=== PATIENT | male | born 1985 | race Caucasian/White ===

== ENCOUNTER 2019-01-21 17:23 | Emergency (ER) | payer MEDICAID ==
[2019-01-21 17:31] VITALS: BP 147/87; PULSE 109; RESP 18; TEMP 98.1; O2SAT 99
--- NOTE | 2019-01-21 19:54 | ED PDOC ---
HPI: Psych/Substance Abuse Time Seen by Provider: 01/21/19 17:40 Chief Complaint (Nursing): Psychiatric Evaluation Chief Complaint (Provider): Psychiatric Evaluation History Per: Patient History/Exam Limitations: no limitations Current Symptoms Are (Timing): Still Present Additional Complaint(s): 33 year old male with history of depression and substance abuse presents to the ED via EMS for a psychiatric evaluation. Patient notes preference of being called Jeanie, as she is transgender. She reports a history of IV drug abuse and alcoholism in the past, and states that while she no longer drinks, she uses methamphetamines daily, but not today. Patient presents to ED seeking help after waking up this morning from a dream that seemed real and feeling like something was taken away from her in her home. Additionally, patient is reporting feeling sad lately because she misses some family members. Otherwise, denies suicidal and homicidal ideation at this time, saying the last time she harmed herself was three days ago the the right forearm. She is requesting to "vent" to someone. PMD: none provided Past Medical History Reviewed: Historical Data, Nursing Documentation, Vital Signs Vital Signs: Last Vital Signs Temp 98.1 F 01/21/19 17:30 Pulse 109 H 01/21/19 17:30 Resp 18 01/21/19 17:30 BP 147/87 01/21/19 17:30 Pulse Ox 99 01/21/19 17:30 - Medical History PMH: Anxiety, Depression, HIV, Schizophrenia Denies: Diabetes, Hepatitis, HTN, Seizures, Sexually Transmitted Disease - Surgical History Other surgeries: breast implants - Family History Family History: States: Unknown Family Hx - Social History Current smoker - smoking cessation education provided: Yes Alcohol: Other (hx of abuse, but reports no longer drinks) Drugs: Methamphetamine (daily), Other (IV drug abuse) - Immunization History Hx Tetanus Toxoid Vaccination: No Hx Influenza Vaccination: No Hx Pneumococcal Vaccination: No - Home Medications Home Medications: Ambulatory Orders Medication Instructions Recorded Lexapro 05/14/15 Unobtainable 09/25/18 Unobtainable 10/14/18 - Allergies Allergies/Adverse Reactions: Allergies Allergy/AdvReac Type Severity Reaction Status Date / Time No Known Allergies Allergy Unverified 10/15/18 07:48 Review of Systems ROS Statement: Except As Marked, All Systems Reviewed And Found Negative Skin: Positive for: Other (cuts on right forearm) Psych: Positive for: Depression, Other (drug abuse). Negative for: Suicidal ideation (or homicidal ideation) Physical Exam - Reviewed Nursing Documentation Reviewed: Yes Vital Signs Reviewed: Yes - Physical Exam Appears: Positive for: No Acute Distress Head Exam: Positive for: ATRAUMATIC, NORMAL INSPECTION, NORMOCEPHALIC Skin: Positive for: Normal Color, Warm, Dry (noted multiple supraficial cuts to right forehead (scabbed) Pt reports she was cutting 2-3 days ago with intent to hurtself ) Eye Exam: Positive for: EOMI, Normal appearance, PERRL ENT: Positive for: Normal ENT Inspection Neck: Positive for: Normal, Painless ROM, Supple Cardiovascular/Chest: Positive for: Regular Rate, Rhythm Respiratory: Positive for: Normal Breath Sounds. Negative for: Respiratory Distress Gastrointestinal/Abdominal: Positive for: Normal Exam, Soft. Negative for: Tenderness Back: Positive for: Normal Inspection Extremity: Positive for: Normal ROM (all extremities), Other (superifical scabbed lacerations noted to right forearm) Neurological/Psych: Positive for: Awake, Alert, Oriented (x3), Mood/Affect (sullen), Other (patient is cooperative in answering questions, but slow to answer; has difficulty gathering thoughts). Negative for: Motor/Sensory Deficits - ECG O2 Sat by Pulse Oximetry: 99 (RA) Pulse Ox Interpretation: Normal Medical Decision Making Medical Decision Making: Time: 1749 Initial Impression: psychiatric evaluation Initial Plan: --Crisis evaluation 2039 Patient evaluated by [employer] construction worker who states pt is stable for discharge with diagnosis of schizophrenia as per Dr. Dougherty, and is to follow up at [facility]. Scribe Attestation: Documented by Inessa Webb, acting as a scribe for Sandy Pappas, HYDRAULIC TECHNICIAN. Provider Scribe Attestation: All medical record entries made by the Scribe were at my direction and personally dictated by me. I have reviewed the chart and agree that the record accurately reflects my personal performance of the history, physical exam, medical decision making, and the department course for this patient. I have also personally directed, reviewed, and agree with the discharge instructions and disposition. Disposition - Clinical Impression Clinical Impression: Schizophrenia - Patient ED Disposition Is Patient to be Admitted: No Counseled Patient/Family Regarding: Diagnosis, Need For Followup - Disposition Disposition: Routine/Home Disposition Time: 20:40 Condition: STABLE Instructions: Schizophrenia (DC) - POA Present On Arrival: None
== END 2019-01-21 20:49 | disposition home or self-care (01) ==
LOC: H.ER 17:23
DX: F20.9 Schizophrenia, unspecified (principal); F32.9 Major depressive disorder, single episode, unspecified; F41.9 Anxiety disorder, unspecified; F10.20 Alcohol dependence, uncomplicated; F17.200 Nicotine dependence, unspecified, uncomplicated

== ENCOUNTER 2019-02-14 08:54 | Emergency (ER) | payer MEDICAID ==
[2019-02-14 08:57] VITALS: BMI 23.7
[2019-02-14 08:58] VITALS: RESP 18
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
[2019-02-14 10:37] LABS: BASO # 0.1 K/uL (0.0-0.2); BASO % 1.1 % (0.0-2.0); EOS # 0.1 K/uL (0.0-0.7); EOS % 1.1 % (0.0-4.0); HEMOGLOBIN 12.6 g/dL (12.0-18.0); LYMPH # 2.5 K/uL (1.0-4.3); LYMPH % 37.2 % (20.0-40.0); MEAN CELL VOLUME 87.3 fl (80.0-94.0); MEAN CORPUSCULAR HEMOGLOBIN 27.8 pg (27.0-31.0); MEAN CORPUSCULAR HGB CONC 31.8 g/dL (33.0-37.0); MEAN PLATELET VOLUME 6.8 fl (7.2-11.7); MONO # 0.8 K/uL (0.0-0.8); MONO % 11.8 % (0.0-10.0); NEUT # 3.3 K/uL (1.8-7.0); NEUT % 48.8 % (50.0-75.0); RBC 4.53 Mil/uL (4.40-5.90); RED CELL DISTRIBUTION WIDTH 14.6 % (11.5-14.5)
[2019-02-14 10:43] LABS: WHITE BLOOD COUNT 6.7 K/uL (4.8-10.8)
[2019-02-14 10:56] LABS: ALT/SGPT 25 U/L (21-72); AST/SGOT 57 U/L (17-59); BLOOD UREA NITROGEN 17 mg/dl (9-20); GFR NON-AFRICAN AMERICAN > 60
[2019-02-14] MEDS ORDERED: Bacitracin 500 Units/gm Oint Foilpak UD ONE (13:14)
[2019-02-14 13:45] LABS: URINE BILIRUBIN NEGATIVE (NEGATIVE); URINE BLOOD NEGATIVE (NEGATIVE); URINE CLARITY CLEAR (Clear); URINE COLOR YELLOW (YELLOW); URINE GLUCOSE (UA) NEG (NEGATIVE); URINE LEUKOCYTE ESTERASE NEG Leu/uL (Negative); URINE PROTEIN 30 mg/dL (NEGATIVE); URINE UROBILINOGEN 0.2-1.0 mg/dL (0.2-1.0)
--- NOTE | 2019-02-14 13:51 | RAD ---
Date of service: 02/14/2019 HISTORY: psych eval COMPARISON: No prior. FINDINGS: LUNGS: The lungs are well inflated and clear. PLEURA: No pleural effusions or pneumothorax. CARDIOVASCULAR: The heart is normal in size. No aortic atherosclerotic calcifications present. OSSEOUS STRUCTURES: Within normal limits for the patient's age. VISUALIZED UPPER ABDOMEN: Normal. OTHER FINDINGS: None. IMPRESSION: No active pulmonary disease.
[2019-02-14 14:10] LABS: BARBITURATES, UR NEGATIVE (NEGATIVE); BENZODIAZEPINES, UR NEGATIVE (NEGATIVE); OPIATES, UR NEGATIVE (NEGATIVE); PHENCYCLIDINE, UR NEGATIVE (NEGATIVE)
--- NOTE | 2019-02-14 19:19 | ED PDOC ---
- Laboratory Results Result Diagrams: 02/14/19 10:20 02/14/19 10:20 Lab Results: Total Bilirubin 0.3 mg/dl (0.2-1.3) 02/14/19 10:20 AST 57 U/L (17-59) 02/14/19 10:20 ALT 25 U/L (21-72) 02/14/19 10:20 Alkaline Phosphatase 60 U/L (38-126) 02/14/19 10:20 Total Protein 8.0 G/DL (6.3-8.2) 02/14/19 10:20 Albumin 4.0 g/dL (3.5-5.0) 02/14/19 10:20 Globulin 4.0 gm/dL (2.2-3.9) H 02/14/19 10:20 Albumin/Globulin Ratio 1.0 (1.0-2.1) 02/14/19 10:20 Urine Color Yellow (YELLOW) 02/14/19 13:34 Urine Clarity Clear (Clear) 02/14/19 13:34 Urine pH 7.0 (5.0-8.0) 02/14/19 13:34 Ur Specific Mary Alice 1.021 (1.003-1.030) 02/14/19 13:34 Urine Protein 30 mg/dL (NEGATIVE) 02/14/19 13:34 Urine Glucose (UA) Neg mg/dL (NEGATIVE) 02/14/19 13:34 Urine Ketones Negative mg/dL (NEGATIVE) 02/14/19 13:34 Urine Blood Negative (NEGATIVE) 02/14/19 13:34 Urine Nitrate Negative (NEGATIVE) 02/14/19 13:34 Urine Bilirubin Negative (NEGATIVE) 02/14/19 13:34 Urine Urobilinogen 0.2-1.0 mg/dL (0.2-1.0) 02/14/19 13:34 Ur Leukocyte Esterase Neg Fina/uL (Negative) 02/14/19 13:34 Urine RBC (Auto) 2 /hpf (0-3) 02/14/19 13:34 Urine Microscopic WBC 1 /hpf (0-5) 02/14/19 13:34 - ECG O2 Sat by Pulse Oximetry: 99 (RA) Pulse Ox Interpretation: Normal Medical Decision Making Medical Decision Making: Time: 1899 --Patient signed out to this provider by Dr. Verma, pending [facility] evaluation. Patient is medically cleared. Patient evaluated at [facility], vitals are stable. Patient resting in bed comfortably. 0120 Patient is stable for transfer and psychiatric admission at this time. ScribeAttestation: Documented byAnum Garcia, acting as a scribe for Laurel Lugo MD. Provider ScribeAttestation: All medical record entries made by the Scribe were at my direction and personally dictated by me. I have reviewed the chart and agree that the record accurately reflects my personal performance of the history, physical exam, medical decision making, and the department course for this patient. I have also personally directed, reviewed, and agree with the discharge instructions and disposition. Disposition Counseled Patient/Family Regarding: Studies Performed, Diagnosis - Clinical Impression Clinical Impression: Psychosis, Drug abuse - POA Present On Arrival: None - Disposition Disposition: Other Institution ([facility]) Disposition Time: 01:20 Condition: STABLE
--- NOTE | 2019-02-14 23:45 | CARD ---
APPROVED REPORT Date of service: 02/14/2019 EKG Measurement Heart [id number] <Conclusion> Normal sinus rhythm Possible left atrial enlargement Borderline ECG
[2019-02-15 00:14] VITALS: BP 133/69; PULSE 91; TEMP 98.2
[2019-02-15 19:50] VITALS: O2SAT 99
== END 2019-02-15 02:34 | disposition short-term general hospital (02) ==
LOC: H.ER 08:54
DX: F29 Unspecified psychosis not due to a substance or known physiological condition (principal); F19.10 Other psychoactive substance abuse, uncomplicated; F17.200 Nicotine dependence, unspecified, uncomplicated; Z86.59 Personal history of other mental and behavioral disorders; Z00.8 Encounter for other general examination
CPT/HCPCS: 71045; 80053; 81003; 85025; 93005; 96372; 99285; G0480; J1630; J2060